=== PATIENT | male | born 1980 | race Caucasian/White ===

== ENCOUNTER 2018-08-10 21:30 | Emergency (ER) | payer OTHER, MEDICAID, SELFPAY ==
--- NOTE | 2018-08-10 21:41 | ED.DENTAL ---
HPI - Dental/Oral General Chief complaint: Dental/Oral Stated complaint: DENTAL PAIN Time Seen by Provider: 08/10/18 21:41 Source: patient Mode of arrival: ambulatory Limitations: no limitations History of Present Illness HPI Narrative: 38 year old smoking male with extensive dental history presents with R upper dental pain for the past few weeks. He states it extends up into the R side of his head. He denies injury. He's had no fever, chills, or facial swelling. He has no foul taste in his mouth or drainage. MD Complaint: tooth pain 1. Onset (ago): week(s) Duration: constant Severity: moderate Relieving factors: nothing Exacerbating factors: chewing Context: history of dental caries Treatment prior to arrival: none Related Data Allergies Allergy/AdvReac Type Severity Reaction Status Date / Time hydrocodone [HYDROCODONE] AdvReac Intermediate GI UPSET Unverified 11/16/17 12:26 Review of Systems Review of Systems All systems reviewed & are unremarkable except as noted in HPI and below Constitutional Denies chills, Denies fever(s), Denies lethargy and Denies weakness Eyes Denies change in vision, Denies eye discharge, Denies irritation and Denies loss of vision ENT Ears, Nose, Mouth, and Throat: Denies change in voice, Reports dental pain, Denies neck pain and Denies sore throat Comments: Dental pain Cardiovascular Denies chest pain, Denies irregular heart rhythm, Denies lightheadedness, Denies palpitations, Denies dyspnea, Denies dyspnea on exertion and Denies orthopnea Respiratory Denies cough, Denies dyspnea, Denies dyspnea on exertion and Denies wheezing Gastrointestinal Gastrointestinal: Denies abdominal pain, Denies change in bowel habits, Denies diarrhea, Denies nausea and Denies vomiting Genitourinary Denies hematuria, Denies flank pain, Denies urinary incontinence and Denies urinary urgency Musculoskeletal Denies neck pain Integumentary/Breasts Denies pruritus, Denies erythema, Denies rash and Denies wounds Neurologic Denies confusion, Denies loss of vision and Denies weakness Psychiatric Denies anxiety, Denies confusion, Denies depression, Denies homicidal ideation and Denies suicidal ideation Endocrine Denies palpitations Hematologic/Lymphatic Denies easy bruising Allergic/Immunologic Denies wheezing [facility] Social History Smoking Status: Current every day smoker Exam Narrative Exam Narrative: GEN: AOx3 and in mild distress ORAL: poor dentition, widespread. No abscess. Multiple dental caries noted. Tooth #1 appears to be old fracture. No swelling or abscess EYES: Pupils are equal, round, and reactive to light and accommodation. Extraoccular muscles are intact bilaterally. There is no subconjunctival hemorrhage or exudate. CHEST: Lungs are clear to auscultation bilaterally and free of wheezes, rales, or rhonchi. Heart rate is regular rhythm, there are no murmurs, clicks, rubs, or gallops. There is no chest wall tenderness. ABD: Abdomen is soft and nontender. There is no guarding or rebound. Bowel sounds are normal in all 4 quadrants. There is no mass or organomegaly. EXT: Full painless ROM of all extremities with no loss of sensation or strength. SKIN: Warm, pink, and dry. No erythema or rash Initial Vital Signs Initial Vital Signs: Vital Signs Temperature 97.9 F 08/10/18 21:42 Pulse Rate 78 08/10/18 21:42 Respiratory Rate 16 08/10/18 21:42 Blood Pressure 125/84 08/10/18 21:42 Pulse Oximetry 100 08/10/18 21:42 Course Reevaluation(s) Reevaluation #1: recommended dental block and contact with patient dentist. Discussed lack of indication for ABX as there is no gum swelling, abscess, or facial swelling. Pain is likely due to dental zeferino or other dental problem. Patient became quite upset and left without further discussion despite attempt to talk about a plan. Vital Signs - 8 hr 08/10/18 21:42 Temperature 97.9 F Pulse Rate 78 Respiratory Rate 16 Blood Pressure 125/84 Pulse Oximetry 100 Discharge Plan Departure Patient Disposition: Left Against Medical Advice Clinical Impression: Left against medical advice Discharge Date/Time: 08/10/18 21:47 Interventions: ED Discharge Assessment Last Done: 08/10/18 21:47 Stand Alone Forms: Against Medical Advice
[2018-08-10 21:42] VITALS: BP 125/84; PULSE 78; RESP 16; TEMP 36.6; O2SAT 100
--- NOTE | 2018-08-11 00:53 | ED_ITS ---
HPI - Dental/Oral General Chief complaint: Dental/Oral Stated complaint: DENTAL PAIN Time Seen by Provider: 08/10/18 21:41 Source: patient Mode of arrival: ambulatory Limitations: no limitations History of Present Illness HPI Narrative: 38 year old smoking male with extensive dental history presents with R upper dental pain for the past few weeks. He states it extends up into the R side of his head. He denies injury. He's had no fever, chills, or facial swelling. He has no foul taste in his mouth or drainage. MD Complaint: tooth pain 2 1. Onset (ago): week(s) Duration: constant Severity: moderate Relieving factors: nothing Exacerbating factors: chewing Context: history of dental caries Treatment prior to arrival: none Related Data Allergies Allergy/AdvReac Type Severity Reaction Status Date / Time hydrocodone [HYDROCODONE] AdvReac Intermediate GI UPSET Unverified 11/16/17 12: 26 Review of Systems Review of Systems All systems reviewed & are unremarkable except as noted in HPI and below Constitutional Denies chills, Denies fever(s), Denies lethargy and Denies weakness Eyes Denies change in vision, Denies eye discharge, Denies irritation and Denies loss of vision ENT Ears, Nose, Mouth, and Throat: Denies change in voice, Reports dental pain, Denies neck pain and Denies sore throat Comments: Dental pain Cardiovascular Denies chest pain, Denies irregular heart rhythm, Denies lightheadedness, Denies palpitations, Denies dyspnea, Denies dyspnea on exertion and Denies orthopnea Respiratory Denies cough, Denies dyspnea, Denies dyspnea on exertion and Denies wheezing Gastrointestinal Gastrointestinal: Denies abdominal pain, Denies change in bowel habits, Denies diarrhea, Denies nausea and Denies vomiting Genitourinary Denies hematuria, Denies flank pain, Denies urinary incontinence and Denies urinary urgency Musculoskeletal Denies neck pain Integumentary/Breasts Denies pruritus, Denies erythema, Denies rash and Denies wounds Neurologic Denies confusion, Denies loss of vision and Denies weakness Psychiatric Denies anxiety, Denies confusion, Denies depression, Denies homicidal ideation and Denies suicidal ideation Endocrine Denies palpitations Hematologic/Lymphatic Denies easy bruising Allergic/Immunologic Denies wheezing [facility] Social History Smoking Status: Current every day smoker Exam Narrative Exam Narrative: GEN: AOx3 and in mild distress ORAL: poor dentition, widespread. No abscess. Multiple dental caries noted. Tooth #1 appears to be old fracture. No swelling or abscess EYES: Pupils are equal, round, and reactive to light and accommodation. Extraoccular muscles are intact bilaterally. There is no subconjunctival hemorrhage or exudate. CHEST: Lungs are clear to auscultation bilaterally and free of wheezes, rales, or rhonchi. Heart rate is regular rhythm, there are no murmurs, clicks, rubs, or gallops. There is no chest wall tenderness. ABD: Abdomen is soft and nontender. There is no guarding or rebound. Bowel sounds are normal in all 4 quadrants. There is no mass or organomegaly. EXT: Full painless ROM of all extremities with no loss of sensation or strength. SKIN: Warm, pink, and dry. No erythema or rash Initial Vital Signs Initial Vital Signs: Vital Signs Temperature 97.9 F 08/10/18 21:42 Pulse Rate 78 08/10/18 21:42 Respiratory Rate 16 08/10/18 21:42 Blood Pressure 125/84 08/10/18 21:42 Pulse Oximetry 100 08/10/18 21:42 Course Reevaluation(s) Reevaluation #1: recommended dental block and contact with patient dentist. Discussed lack of indication for ABX as there is no gum swelling, abscess, or facial swelling. Pain is likely due to dental zeferino or other dental problem. Patient became quite upset and left without further discussion despite attempt to talk about a plan. Vital Signs - 8 hr 08/10/18 21:42 Temperature 97.9 F Pulse Rate 78 Respiratory Rate 16 Blood Pressure 125/84 Pulse Oximetry 100 Discharge Plan Departure Patient Disposition: Left Against Medical Advice Clinical Impression: Left against medical advice Discharge Date/Time: 08/10/18 21:47 Interventions: ED Discharge Assessment Last Done: 08/10/18 21:47 Stand Alone Forms: Against Medical Advice
== END 2018-08-10 21:47 | disposition left against medical advice (07) ==
PROVIDERS: Emergency Provider Emergency Medicine
DX: K08.89 Other specified disorders of teeth and supporting structures (principal)
CPT/HCPCS: 99282

== ENCOUNTER 2019-05-08 05:50 | Emergency (ER) | payer OTHER, SELFPAY ==
[2019-05-08 05:52] VITALS: BP 127/94; PULSE 102; RESP 16; TEMP 36.7; O2SAT 100; BMI 25.1
[2019-05-08] MEDS: PENICILLIN 250 MG TAB PREPACK 1 BOTTLE MISC (06:16)
--- NOTE | 2019-05-08 06:42 | ED_ITS ---
HPI - Dental/Oral General Chief complaint: Dental/Oral Stated complaint: upper right side tooth infection pain Time Seen by Provider: 05/08/19 05:52 Source: patient Mode of arrival: Ambulatory Limitations: no limitations History of Present Illness HPI Narrative: 39-year-old male smoker with significant dental history presents with a few days of swelling on the right side of his face. He has had extensive dental work and this point refuses to go see another dentist. He denies fever chills. Denies nausea or vomiting. Denies any recent injury, swelling in his mouth or foul taste. MD Complaint: tooth pain Teeth map: 1. Onset (ago): day(s) Duration: constant Severity: mild Relieving factors: nothing Exacerbating factors: chewing Context: history of dental caries Treatment prior to arrival: none Related Data Previous Rx's Medication Instructions Recorded penicillin V potassium 500 mg PO QID #28 tab 05/08/19 Allergies Allergy/AdvReac Type Severity Reaction Status Date / Time hydrocodone [HYDROCODONE] AdvReac Intermediate GI UPSET Unverified 11/16/17 12:26 Review of Systems Constitutional Constitutional: Denies chills, Denies fatigue, Denies fever(s), Denies frequent falls, Denies lethargy and Denies weakness Eyes Eyes: Denies change in vision, Denies eye discharge, Denies irritation and Denies loss of vision ENT Ears, Nose, Mouth, and Throat: Denies change in voice, Denies dizziness, Reports facial pain, Denies neck pain, Denies sore throat and Denies throat swelling Cardiovascular Cardiovascular: Denies chest pain, Denies irregular heart rhythm, Denies lightheadedness, Denies palpitations, Denies dyspnea, Denies dyspnea on exertion and Denies orthopnea Respiratory Respiratory: Denies cough, Denies dyspnea, Denies dyspnea on exertion and Denies wheezing Gastrointestinal Gastrointestinal: Denies abdominal pain, Denies change in bowel habits, Denies diarrhea, Denies nausea and Denies vomiting Genitourinary Genitourinary: Denies hematuria, Denies flank pain, Denies urinary incontinence and Denies urinary urgency Musculoskeletal Musculoskeletal: Denies back pain, Denies muscle weakness, Denies neck pain, Denies numbness and Denies tingling Integumentary/Breasts Skin/Breast: Denies pruritus, Denies erythema, Denies rash and Denies wounds Neurologic Neurologic: Denies behavioral changes, Denies confusion, Denies dizziness, Denies frequent falls, Denies loss of vision, Denies numbness, Denies tingling and Denies weakness Psychiatric Psychiatric: Denies anxiety, Denies behavioral changes, Denies confusion, Denies depression, Denies homicidal ideation and Denies suicidal ideation Endocrine Endocrine: Denies fatigue, Denies flushing and Denies palpitations Hematologic/Lymphatic Hematologic/Lymphatic: Denies easy bruising Allergic/Immunologic Allergic/Immunologic: Denies urticaria, Denies throat swelling and Denies wheezing PFSH Social History Smoking Status: Current every day smoker Social History Smoking Status: Current every day smoker Exam Narrative Exam Narrative: GEN: AOx3 and in mild distress EYES: Pupils are equal, round, and reactive to light and accommodation. Ex traoccular muscles are intact bilaterally. There is no subconjunctival hemorrhage or exudate. FACE: mild R sided facial swelling. No erythema or induration. Poor dentition throughout. No intraoral abscess. CHEST: Lungs are clear to auscultation bilaterally and free of wheezes, rales, or rhonchi. Heart rate is regular rhythm, there are no murmurs, clicks, rubs, or gallops. There is no chest wall tenderness. ABD: Abdomen is soft and nontender. There is no guarding or rebound. Bowel sounds are normal in all 4 quadrants. There is no mass or organomegaly. EXT: Full painless ROM of all extremities with no loss of sensation or strength. SKIN: Warm, pink, and dry. No erythema or rash Initial Vital Signs Initial Vital Signs: Vital Signs Temperature 98.0 F 05/08/19 05:52 Pulse Rate 102 H 05/08/19 05:52 Respiratory Rate 16 05/08/19 05:52 Blood Pressure 127/94 H 05/08/19 05:52 Pulse Oximetry 100 05/08/19 05:52 Course Orders Ordered: Discontinued Medications Penicillin V Potassium (Penicillin Vk 250mg Tab Prepack) 1 bottle MISC SEEINSTR ONE Stop: 05/08/19 06:05 Last Admin: 05/08/19 06:16 Dose: 1 bottle Documented by: DONAVANARRINGTO Vital Signs Vital signs: Vital Signs - 8 hr 05/08/19 05:52 Temperature 98.0 F Pulse Rate 102 H Respiratory Rate 16 Blood Pressure 127/94 H Pulse Oximetry 100 Discharge Plan Departure Patient Disposition: Home Clinical Impression: Infected dental caries Discharge Date/Time: 05/08/19 06:17 Instructions: Tooth Decay, Tooth Abscess, DI for Dental Pain Activity Restrictions/Additional Instructions: *You have been diagnosed with [dental abscess] *What to do: *Take medications as directed *Follow up with your primary care provider in 2-3 days, call for an appointment. Let them know you were seen in the Emergency Department and that we ask that you be seen in follow up *Return to ER if you should have any new, worsening or concerning symptoms Prescriptions: New penicillin V potassium 500 mg tablet 500 mg PO QID Qty: 28 RF: 0 Referrals: Brayan Dickey DMD [Physician] - Miscellaneous,MD Inderjit [Primary Care Provider] -
== END 2019-05-08 06:17 | disposition home or self-care (01) ==
LOC: ED 06:21
PROVIDERS: Emergency Provider Emergency Medicine
DX: K02.9 Dental caries, unspecified (principal); K04.7 Periapical abscess without sinus
CPT/HCPCS: 99282